=== PATIENT | male | born 1975 | race Caucasian/White ===

== ENCOUNTER 2016-09-16 20:51 | Emergency (ER) | payer OTHER ==
--- NOTE | ~2016-09-16 | EKG ---
PATIENT: TUNG MENDOZA UNIT #: [id number] Ventricular Rate: 84 BPM Atrial Rate: 84 BPM P-R Interval: 152 ms QRS Duration: 98 ms Q-T Interval: 342 ms QTC Calculation(Bezet): 404 ms P [place]: 30 degrees Calculated R [place]: 25 degrees Calculated T [place]: 35 degrees Diagnosis Line: Normal sinus rhythm with sinus arrhythmia Diagnosis Line: Normal ECG Diagnosis Line: When compared with ECG of 12-JAN-2012 19:17, Diagnosis Line: No significant change was found Diagnosis Line: Confirmed by JILL BENJAMIN MD ([id number]) on 09/18/2016 Diagnosis Line: 8:04:56 PM INTERPRETING MD: SOURAV RAMIREZ
[~2016-09-16 20:51] MED LIST: ALBUTEROL17 GM INH; AMOXIL500 MG PO; BENZONATATE PO; FLEXERIL10 M1 PO; FLOMAX0.4 M1 PO; LEVAQUIN PO; NO MEDICATIONS; OFLOXACIN 0.3% AS; ORUDIS75 M1 PO; PHENERGAN25 MG PO; TYLOX1 CAP 5/50 PO; VOLTAREN75 MG PO; ZITHROMAX PO
== END 2016-09-16 22:22 | disposition home or self-care (01) ==
LOC: SED 20:51
DX: J40 Bronchitis, not specified as acute or chronic (principal); R09.1 Pleurisy
CPT/HCPCS: 93005; 99282; 99283